=== PATIENT | female | born 1960 | race Caucasian/White ===

== ENCOUNTER → 2018-11-25 | Outpatient (CLI) | payer BC | LOC: GMATM 14:51 | PROVIDERS: ATTEND Nurse Practitioner Family | DX: R53.83 Other fatigue (principal); R53.81 Other malaise; J02.9 Acute pharyngitis, unspecified ==

== ENCOUNTER 2018-12-23 04:51 | Day surgery (SDC) | payer BC ==
[2018-12-23] MEDS ORDERED: LACTATED RINGERS 1,000 ML ONE (07:13)
[2018-12-23] MEDS ORDERED: PROPOFOL 200 MG/20 ML VIAL IV ONE (10:00)
[2018-12-23] MEDS ORDERED: LIDOCAINE 1% 10 ML VIAL INJ ONE (10:00)
--- NOTE | 2018-12-23 10:59 | OP ---
DATE OF PROCEDURE: 12/23/18 PREOPERATIVE DIAGNOSIS: 1. History of colonic polyp. POSTOPERATIVE DIAGNOSIS: 1. History of colonic polyp. PROCEDURE: 1. Colonoscopy with biopsy. SURGEON: David Birch MD ANESTHESIA: General. FINDINGS: Colonoscopy was completed to the terminal ileum which was intubated and appeared normal. The ileocecal valve was prominent, but no obvious tumor. A small 1.5 mm polyp was identified in the upper rectum and removed with forceps. COMPLICATIONS: None. ESTIMATED BLOOD LOSS : None. PLAN: Discharge. INDICATION: As stated. PROCEDURE: Once anesthesia was successfully induced, the digital rectal exam was normal with normal sphincter tone and no masses. The colonoscope was introduced and carefully and slowly passed all the way to the ileocecal valve. We identified the appendiceal orifice, the ileocecal valve and did intubate the terminal ileum. Initially, the ileocecal valve appeared prominent, but as it descended, it had a more normal appearance. Upon withdrawn, the colon surfaces appeared normal. There were no significant polyps or evidence of colitis. No significant diverticulosis was seen. In the upper rectum, we did identify a small polyp that was excised with forceps. We monitored for bleeding, which was nil. We aspirated the area as we withdrew. She tolerated the procedure and was taken to Recovery to be discharged. #[id number] MTDD
[2018-12-23 12:03] VITALS: O2SAT 98
[2018-12-23 12:04] VITALS: BP 152/87; TEMP 97.9
== END 2018-12-23 10:55 | disposition home or self-care (01) ==
LOC: AMB 04:51
PROVIDERS: ATTEND Surgery
DX: Z12.11 Encounter for screening for malignant neoplasm of colon (principal); K62.1 Rectal polyp; I10 Essential (primary) hypertension; Z86.010 Personal history of colon polyps; Z87.891 Personal history of nicotine dependence; Z90.49 Acquired absence of other specified parts of digestive tract; Z79.82 Long term (current) use of aspirin; Z79.899 Other long term (current) drug therapy
CPT/HCPCS: 00812; 45380; J3490; J7120

== ENCOUNTER → 2019-03-14 | Outpatient (CLI) | payer BC | LOC: GMAL 10:36 | PROVIDERS: ATTEND Family Medicine | DX: E53.9 Vitamin B deficiency, unspecified (principal) ==

== ENCOUNTER → 2019-06-06 | Outpatient (CLI) | payer BC ==
--- NOTE | 2019-06-06 16:44 | CT ---
EXAM DESCRIPTION: Abdoment/Pelvis w/o Contrast CLINICAL HISTORY: 58 years Female, UNSPECIFIED ABDOMINAL PAIN TECHNIQUE: This exam was performed according to our departmental dose-optimization program, which includes automated exposure control, adjustment of the mA and/or kV according to patient size and/or use of iterative reconstruction technique. COMPARISON: None at time of initial interpretation. FINDINGS: Visualized lung bases are grossly unremarkable. Evaluation limited by lack of intravenous contrast. Low-attenuation hepatic dome lesion measuring 1.2 cm series 2 image 18. Low-attenuation left hepatic lobe lesion measuring 2.5 cm series 2 image 45. Cholecystectomy. No biliary dilatation. The spleen, pancreas and adrenal glands are unremarkable. Normal renal contours. No hydronephrosis. No urolithiasis. The bladder is decompressed. Scattered colonic diverticula without focal inflammatory change. No evidence of bowel obstruction. No findings to suggest appendicitis. No adenopathy. No focal fluid collection. No free air. Normal caliber abdominal aorta. Mild atherosclerotic disease. No acute or suspicious osseous abnormality. Scattered degenerative changes present. IMPRESSION: 1. No evidence of acute process in the abdomen or pelvis. 2. Two indeterminate hepatic lesions measuring 1.2 and 2.5 cm respectively. Recommend MRI hepatic mass protocol for further evaluation. Electronically signed by: Molina Lunsford MD 06/06/2019 4:42 PM [employer]
== END ==
LOC: CT 13:06
PROVIDERS: ATTEND Family Medicine
DX: K76.9 Liver disease, unspecified (principal)

== ENCOUNTER → 2019-06-16 | Outpatient (CLI) | payer BC ==
--- NOTE | 2019-06-17 14:16 | MRI ---
EXAM DESCRIPTION: Abdomen w/wo Contrast: MRI. CLINICAL HISTORY: 58 years Female Unspecified abdominal pain. COMPARISON: CT scan of the abdomen June 06. TECHNIQUE: Multiplanar, high-field MRI, multiple sequences, without and with gadolinium IV contrast: 1 mL per 5 kg body weight. No adverse reactions. FINDINGS: Lung and Pleural bases: Negative. Stomach, Liver, Adrenal Glands, and Spleen: In the lateral segment of the left lobe liver is a partially circumscribed and partially lobulated mass right on T2 imaging measuring 2.7 x 2.0 cm and 2.7 cm craniocaudal. A second smaller mass subcapsular in the dome of the right superior liver measures 2.3 cm craniocaudal and 1.4 x 1.3 cm transverse. Similar signal. Stable low signal on in phase and out of phase images. Limited diffusion more centrally than peripherally. On dynamic thrive imaging with gadolinium IV contrast, the lesions show minimal peripheral enhancement on the arterial phase with increasing centripetal enhancement over time. The smaller right lobe lesion is almost completely enhanced at 3 minutes and the left lobe lesion is almost completely enhanced at 5 minutes. These findings are consistent with hemangiomas. Long axis right lobe 16.9 cm. The stomach and solid organs are negative. Kidneys: Small cyst lateral cortex upper pole right kidney, otherwise unremarkable bilaterally. Aorta: Normal caliber and normal arterial phase enhancement. Small Bowel: Included segments normal caliber. TI and Cecum: Not included on the study. Colon: Included segments with mild to moderate constipation and minimal gas. Soft tissue Pelvis: Not included on the study. Abdominal wall and back soft tissues: Unremarkable. Mesentery: No ascites. No enlarged lymph nodes. Osseous structures: No significant bony or bony spinal abnormalities. IMPRESSION: 1. 2.7 cm hemangioma in the left lobe of the liver and 2.3 cm hemangioma in the right lobe near the diaphragm. Right lobe of the liver size is upper normal limits. 2. Mild to moderate constipation in the included colonic segments. 3. Small cyst lateral cortex upper pole right kidney. Electronically signed by: Henrry Adame MD 06/17/2019 2:14 PM [facility]
== END ==
LOC: MRI 07:39
PROVIDERS: ATTEND Family Medicine
DX: D18.03 Hemangioma of intra-abdominal structures (principal); K59.00 Constipation, unspecified; N28.1 Cyst of kidney, acquired

== ENCOUNTER → 2019-09-09 | Outpatient (CLI) | payer BC | LOC: GMAL 11:29 | PROVIDERS: ATTEND Family Medicine | DX: E55.9 Vitamin D deficiency, unspecified (principal); I10 Essential (primary) hypertension; Z13.220 Encounter for screening for lipoid disorders ==

== ENCOUNTER → 2020-04-23 | Outpatient (CLI) | payer OTHER | LOC: GMAL 10:41 | PROVIDERS: ATTEND Family Medicine | DX: E53.9 Vitamin B deficiency, unspecified (principal); R53.83 Other fatigue; E55.9 Vitamin D deficiency, unspecified; I10 Essential (primary) hypertension; Z79.899 Other long term (current) drug therapy ==